=== PATIENT | male | born 1950 | race Caucasian/White ===

== ENCOUNTER 2022-08-28 07:48 | Inpatient (IN) | payer OTHER ==
[~2022-08-28] VITALS: Ht 180.3 cm; Wt 108.9 kg
[~2022-08-28 07:48] MED LIST: CEFAZOLIN SOD 2 GM in D5W 50 ML IV ONE
[2022-08-28] MEDS ORDERED: CEFAZOLIN 2 GM IVPB PREMIX 50 ML IV ONE (07:57)
[2022-08-28] MEDS ORDERED: SCOPOLAMINE HYDROBROMIDE 1 MG PATCH .72 H (TRANSDERM-SCOP) TD ONE ×2 (08:28→08:30)
[2022-08-28] MEDS ORDERED: oxyCODONE HCL 10 MG TAB.ER.12H PO ONE ×2 (08:28→08:30)
[2022-08-28] MEDS ORDERED: GABAPENTIN 300 MG CAPSULE ONE (08:28)
[2022-08-28] MEDS ORDERED: CELECOXIB 200 MG CAPSULE ONE (08:28)
[2022-08-28] MEDS ORDERED: ACETAMINOPHEN 500 MG TABLET PO ONE (08:30)
[2022-08-28] MEDS ORDERED: CELECOXIB 100 MG CAPSULE PO ONE (08:30)
[2022-08-28] MEDS ORDERED: GABAPENTIN 300 MG CAPSULE PO ONE (08:30)
[2022-08-28] MEDS ORDERED: TRANEXAMIC ACID 1,000 MG/10 ML VIAL IV ONE (08:45)
[2022-08-28] MEDS ORDERED: ACETAMINOPHEN 500 MG TABLET ONE (08:52)
[2022-08-28] MEDS ORDERED: METOCLOPRAMIDE HCL 10 MG/2 ML VIAL IVP PRN (10:00)
[2022-08-28] MEDS ORDERED: LACTULOSE 20 GM/30 ML UDC PO PRN (10:00)
[2022-08-28] MEDS ORDERED: NALOXONE HCL 0.4 MG/ML AMP (NARCAN) IVP PRN ×3 (10:00)
[2022-08-28] MEDS ORDERED: DIPHENHYDRAMINE HCL 25 MG CAPSULE PO PRN (10:00)
[2022-08-28] MEDS ORDERED: BISACODYL 10 MG/SUPPOSITORY RC PRN (10:00)
[2022-08-28] MEDS ORDERED: DESFLURANE 15 MIN GAS INH ONE (10:27)
[2022-08-28] MEDS ORDERED: NS 1000 ML IV.SOLN IV ONE (10:27)
[2022-08-28] MEDS ORDERED: VANCOMYCIN HCL 1000 MG/VIAL IV ONE (10:27)
[2022-08-28] MEDS ORDERED: WATER FOR IRRIGATION,STERILE 1,000 ML IRRIG.SOLN IR ONE (10:27)
[2022-08-28] MEDS ORDERED: BUPIVACAINE /PF 0.25% 30 ML VIAL INJ ONE (10:27)
[2022-08-28] MEDS ORDERED: PROPOFOL 200MG/ 20ML VIAL (DIPRIVAN) IV ONE (10:27)
[2022-08-28] MEDS ORDERED: MIDAZOLAM HCL 2 MG/2 ML VIAL (VERSED) ONE (10:27)
[2022-08-28] MEDS ORDERED: ONDANSETRON HCL 4 MG/2 ML VIAL ONE (10:27)
[2022-08-28] MEDS ORDERED: NS IRRIG SOLN 1000 ML IR ONE (10:27)
[2022-08-28] MEDS ORDERED: TRANEXAMIC ACID 1,000 MG/10 ML VIAL ONE (10:27)
[2022-08-28] MEDS ORDERED: LR 1,000 ML IV.SOLN IV ONE (10:27)
[2022-08-28] MEDS ORDERED: LORATADINE 10 MG TABLET PO PRN (11:00)
[2022-08-28] MEDS ORDERED: oxyCODONE HCL 5 MG TABLET PO PRN (11:00)
[2022-08-28] MEDS ORDERED: traMADol HCL HCL 50 MG TABLET (ULTRAM) PO PRN (11:00)
[2022-08-28] MEDS ORDERED: HYDROmorphone 1 MG/ML INJ. CARTRIDGE IVP PRN ×3 (11:00)
[2022-08-28] MEDS ORDERED: ACETAMINOPHEN I.V. 1000 MG 100 ML IV ONE (11:45)
[2022-08-28] MEDS ORDERED: ONDANSETRON HCL 4 MG/2 ML VIAL IVP PRN (11:45)
[2022-08-28] MEDS ORDERED: DIPHENHYDRAMINE INJ 50 MG/ML VIAL IVP PRN (11:45)
[2022-08-28] MEDS ORDERED: LOSA100T4 PO (12:49)
[2022-08-28] MEDS ORDERED: FINA5TAB3 PO (12:49)
[2022-08-28] MEDS ORDERED: TAMS-11 PO (12:49)
[2022-08-28] MEDS ORDERED: NIFE90TA24 PO (12:49)
[2022-08-28] MEDS ORDERED: CARV3.1246 PO (12:49)
[2022-08-28] MEDS ORDERED: LOVA20TA2 PO (12:49)
[2022-08-28] MEDS ORDERED: ASPI-1077 PO (12:49)
[2022-08-28] MEDS ORDERED: EZET-75 PO (12:49)
[2022-08-28] MEDS ORDERED: HYDR12.585 PO (12:49)
[2022-08-28] MEDS ORDERED: ESCI20TA PO (12:49)
[2022-08-28 14:00] VITALS: BP_SYST 109
[2022-08-28] MEDS: KETOROLAC TROMETHAMINE 10 MG TABLET (TORADOL) PO SCH ×2 (14:00→21:08)
[2022-08-28] MEDS: ACETAMINOPHEN 500 MG TABLET PO SCH ×2 (14:00→21:09)
[2022-08-28 14:08] VITALS: BP_SYST 109
[2022-08-28] MEDS: ceFAZolin SODIUM 2 GM in D5W 50 ML IV SCH ×2 (15:17→21:19)
[2022-08-28] MEDS ORDERED: LOVASTATIN 20 MG TABLET PO SCH (18:00)
[2022-08-28 20:00] VITALS: BP_SYST 113
[2022-08-28] MEDS: CARVEDILOL 3.125 MG TABLET (COREG) PO SCH (20:03)
[2022-08-28] MEDS: ATORVASTATIN 10 MG TABLET PO SCH (20:03)
[2022-08-28] MEDS: TAMSULOSIN HCL 0.4 MG CAP PO SCH (20:03)
[2022-08-28] MEDS: SENNOSIDES/DOCUSATE SODIUM 1 TAB TABLET(SENOKOT-S) PO SCH (20:07)
[2022-08-29 00:13] VITALS: BP_SYST 122
[2022-08-29 05:47] LABS: BASOPHILS % (AUTO) 0.3 % (0.0-2.0); EOSINOPHILS % (AUTO) 0.1 % (0.0-4.0); HEMATOCRIT 30.3 % (36-54); HEMOGLOBIN 10.5 g/dL (14.0-18.0); LYMPHOCYTES # (AUTO) 1.1 K/uL (1.0-5.5); LYMPHOCYTES % (AUTO) 14.2 % (20.5-51.5); MEAN CORPUSCULAR HEMOGLOBIN 29 pg (27-31); MEAN CORPUSCULAR HGB CONC 35 % (32-36); MEAN CORPUSCULAR VOLUME 85 fL (79.0-98.0); MONOCYTES # (AUTO) 0.5 K/uL (0.0-1.0); MONOCYTES % (AUTO) 6.5 % (1.7-9.3); NEUTROPHILS # (AUTO) 6.3 K/uL (1.8-7.7); NEUTROPHILS % (AUTO) 78.9 % (40.0-70.0); PLATELET COUNT (AUTO) 211 K/uL (130-430); RED BLOOD CELL COUNT(AUTO) 3.57 MIL/uL (4.2-6.2); RED CELL DISTRIBUTION WIDTH 14.6 % (9.0-15.0)
[2022-08-29] MEDS: ACETAMINOPHEN 500 MG TABLET PO SCH ×3 (05:55→21:11)
[2022-08-29] MEDS: KETOROLAC TROMETHAMINE 10 MG TABLET (TORADOL) PO SCH (05:56)
[2022-08-29] MEDS: ceFAZolin SODIUM 2 GM in D5W 50 ML IV SCH (05:58)
[2022-08-29 06:11] LABS: ALBUMIN 3.5 g/dL (3.4-4.8); CALCIUM 8.3 mg/dL (8.4-11.0); CREATININE 2.36 mg/dL (0.55-1.30); TOTAL BILIRUBIN 0.5 mg/dL (0.0-1.0)
[2022-08-29] MEDS ORDERED: TAMSULOSIN HCL 0.4 MG CAP PO ONE (07:30)
[2022-08-29] MEDS ORDERED: NACL 0.9% 1,000 ML IV ONE (07:45)
[2022-08-29 08:00] VITALS: BP_SYST 124
[2022-08-29] MEDS: SENNOSIDES/DOCUSATE SODIUM 1 TAB TABLET(SENOKOT-S) PO SCH ×2 (08:42→21:00)
[2022-08-29] MEDS: NIFEdipine 30 MG TAB.ER.24 PO SCH (08:42)
[2022-08-29] MEDS: DECADRON 4 MG TABLET PO SCH (08:42)
[2022-08-29] MEDS: ASPIRIN 81 MG TAB.CHEW PO SCH ×2 (08:42→21:08)
[2022-08-29] MEDS: CARVEDILOL 3.125 MG TABLET (COREG) PO SCH ×2 (08:43→21:09)
[2022-08-29] MEDS: CITALOPRAM HYDROBROMIDE 20 MG TABLET PO SCH (08:43)
[2022-08-29] MEDS ORDERED: HYDROCHLOROTHIAZIDE 12.5 MG CAPSULE (HCTZ) PO SCH (09:00)
[2022-08-29] MEDS ORDERED: ESCITALOPRAM OXALATE 10 MG TABLET PO SCH (09:00)
[2022-08-29] MEDS: CELECOXIB 200 MG CAPSULE PO SCH ×2 (10:32→22:59)
[2022-08-29 11:26] VITALS: BP_SYST 134
[2022-08-29] MEDS: NACL 0.9% 1,000 ML IV SCH ×3 (13:10→21:16)
[2022-08-29 15:10] VITALS: BP_SYST 122
[2022-08-29 20:00] VITALS: BP_SYST 143
[2022-08-29] MEDS: TAMSULOSIN HCL 0.4 MG CAP PO SCH (21:10)
[2022-08-29] MEDS: ATORVASTATIN 10 MG TABLET PO SCH (21:10)
[2022-08-29] MEDS: oxyCODONE HCL 5 MG TABLET PO PRN (23:06)
[2022-08-30 01:54] VITALS: BP_SYST 140
[2022-08-30] MEDS: NACL 0.9% 1,000 ML IV SCH (02:52)
[2022-08-30] MEDS: ACETAMINOPHEN 500 MG TABLET PO SCH (05:36)
[2022-08-30] MEDS: oxyCODONE HCL 5 MG TABLET PO PRN ×2 (05:47→11:21)
[2022-08-30 06:17] LABS: CALCIUM 7.8 mg/dL (8.4-11.0); CREATININE 1.73 mg/dL (0.55-1.30)
[2022-08-30] MEDS ORDERED: POTASSIUM CHLORIDE 20 MEQ/PKT PACKET PO ONE (07:00)
[2022-08-30] MEDS ORDERED: POTASSIUM CHLORIDE 20 MEQ TAB.PRT.SR PO ONE (07:30)
[2022-08-30 08:00] VITALS: BP_SYST 146
[2022-08-30] MEDS: CARVEDILOL 3.125 MG TABLET (COREG) PO SCH (09:27)
[2022-08-30] MEDS: NIFEdipine 30 MG TAB.ER.24 PO SCH (09:27)
[2022-08-30] MEDS: DECADRON 4 MG TABLET PO SCH (09:27)
[2022-08-30] MEDS: CITALOPRAM HYDROBROMIDE 20 MG TABLET PO SCH (09:28)
[2022-08-30] MEDS: ASPIRIN 81 MG TAB.CHEW PO SCH (09:28)
[2022-08-30] MEDS: SENNOSIDES/DOCUSATE SODIUM 1 TAB TABLET(SENOKOT-S) PO SCH (09:28)
[2022-08-30 10:47] VITALS: BP_SYST 146
[2022-08-30 11:17] VITALS: BP_SYST 146
[2022-08-30] MEDS: CELECOXIB 200 MG CAPSULE PO SCH (11:21)
== END 2022-08-30 11:40 | disposition home health service (06) | DRG 470 ==
LOC: SMU 07:48
PROVIDERS: ADMIT Student in an Organized Health Care Education/Training Program; ATTEND Student in an Organized Health Care Education/Training Program
PROC: 0SRC0J9 Replacement of Right Knee Joint with Synthetic Substitute, Cemented, Open Approach (ICD-10-PCS; principal; 2022-08-28 10:27)
DX: M17.11 Unilateral primary osteoarthritis, right knee (principal); N17.9 Acute kidney failure, unspecified; I12.9 Hypertensive chronic kidney disease with stage 1 through stage 4 chronic kidney disease, or unspecified chronic kidney disease; N18.9 Chronic kidney disease, unspecified; N40.0 Benign prostatic hyperplasia without lower urinary tract symptoms; R33.9 Retention of urine, unspecified; N13.9 Obstructive and reflux uropathy, unspecified; E86.0 Dehydration
CPT/HCPCS: 36415; 73560-TC; 76770; 80048; 80053; 85025; 87081; 88305; 88311; 96379; 97110-GP; 97116-GP; 97163-GP; 97530-GP; C1713; C1776; J0690; J2405; J2704; J3370; J3465; J3490; J7030; J7050; J7060; J7120; J8540